=== PATIENT | female | born 1995 | race Caucasian/White ===

== ENCOUNTER 2017-03-03 00:34 | Emergency (ER) | payer OTHER ==
[~2017-03-03] VITALS: Ht 172.7 cm; Wt 71.3 kg
[2017-03-03 00:41] VITALS: TEMP 36.9; Ht 172.7 cm; Wt 71.3 kg
[2017-03-03] MEDS ORDERED: PHENAZOPYRIDINE HCL 200 MG TAB PO STA (00:57)
[2017-03-03] MEDS ORDERED: SULFAMETHOXAZOLE/TRIMETHOPRIM DS 800/160MG TAB PO STA (00:57)
--- NOTE | 2017-03-03 00:57 | EMERGENCY ROOM VISIT NOTE ---
History Report prepared by Thom: Varsha Mae Under the Supervision of: Dr. Magen Pope M.D. First contact with patient: 00:45 Chief Complaint: URINARY SYMPTOMS Stated Complaint: BLOOD IN URINE History of Present Illness The patient is a 22 year old female who presents to the Emergency Room with complaints of worsening urinary symptoms that began two hours prior to arrival. She currently rates her discomfort as a 4/10 in severity. The patient states that she has had a UTI in the past, noting that her symptoms today feel similar just worse. Today she associates dysuria, hematuria, chills, dizziness, and lower pelvic abdominal pain. The patient denies any fever, chest pain, vaginal bleeding, vaginal discharge, flank pain, back pain, or swelling in her bilateral ankles. She denies taking any medications for her symptoms. The patient notes concern for STDs, stating that she had intercourse with her boyfriend yesterday. She denies seeing a astronomy instructor in the past. The patient denies taking any medications daily. Source of History: patient Onset: two hours prior to arrival Position: other (global) Symptom Intensity: 4/10 Quality: other (urinary symptoms) Timing: worsening Associated Symptoms: + abdominal pain (pelvic), + chills, + urinary symptoms (dysuria, hematuria), No back pain, No chest pain, No fevers Note: Associated Symptoms: dizziness Review of Systems See HPI for pertinent positives & negatives. A total of 10 systems reviewed and were otherwise negative. Past Medical & Surgical Medical Problems: (1) No active medical problems Family History No pertinent family history stated. Social History Smoking Status: Never Smoker Marital Status: in relationship Occupation Status: [employer] student Current/Historical Medications Scheduled Sulfa/Trimethoprim (Bactrim Ds 800MG/160MG), 1 TAB PO BID Scheduled PRN Phenazopyridine HCl (Pyridium), 200 MG PO TID PRN for Frequency/Burning w/ Urination Physical Exam Vital Signs Date Time Temp Pulse Resp B/P Pulse Ox O2 Delivery O2 Flow Rate FiO2 03/03/17 01:42 87 18 115/50 96 03/03/17 00:41 36.9 73 20 141/94 96 Room Air Physical Exam GENERAL: Patient is anxious appearing and in no acute distress. HEENT: No acute trauma, normocephalic atraumatic, mucous membranes moist, no nasal congestion, no scleral icterus. NECK: No stridor, no adenopathy, no meningismus, trachea is midline. LUNGS: No dyspnea. Clear to auscultation and equal bilaterally. No wheeze, no rhonchi. HEART: Regular rate and rhythm. No murmurs, rubs, gallops appreciated. ABDOMEN: Soft, nontender, bowel sounds positive, no masses appreciated, no peritonitis. BACK: No midline tenderness, no CVA tenderness EXTREMITIES: Normal motion all extremities, no cyanosis, no edema. NEUROLOGIC: Alert and oriented, no acute motor or sensory deficits, no focal weakness, cranial nerves grossly intact. SKIN: No rash, no jaundice, no diaphoresis. Medical Decision & Procedures Laboratory Results Test 03/03/17 00:50 Urine Color DK YELLOW Urine Appearance TURBID (CLEAR) Urine pH 5.0 (4.5-7.5) Urine Specific [place] 1.022 (1.000-1.030) Urine Protein 2+ (NEG) Urine Glucose (UA) NEG (NEG) Urine Ketones NEG (NEG) Urine Occult Blood 3+ (NEG) Urine Nitrite NEG (NEG) Urine Bilirubin NEG (NEG) Urine Urobilinogen NEG (NEG) Urine Leukocyte Esterase LARGE (NEG) Urine WBC (Auto) >30 /hpf (0-5) Urine RBC (Auto) >30 /hpf (0-4) Urine Hyaline Casts (Auto) 5-10 /lpf (0-5) Urine Epithelial Cells (Auto) >30 /lpf (0-5) Urine Bacteria (Auto) 1+ (NEG) Urine Test NEG (NEG) Laboratory results as reviewed by me. Medications Administered Medications (Trade) Dose Ordered Sig/Luz Route Start Time Stop Time Status Last Admin Dose Admin Trimethoprim/ Sulfamethoxazole (Septra Ds 800/ 160MG Tab) 1 tab NOW STAT PO 03/03/17 00:57 03/03/17 00:58 DC 03/03/17 01:01 1 TAB Phenazopyridine HCl (Pyridium Tab) 200 mg NOW STAT PO 03/03/17 00:57 03/03/17 00:58 DC 03/03/17 01:01 200 MG ED Course 0049: The patient was evaluated in room A4B. A complete history and physical exam was performed. 0057: Ordered Pyridium Tab 200 mg PO, Trimethoprim/Sulfamethoxazole 1 tab PO. 0105: I reevaluated the patient and she is resting comfortably. I discussed the exam findings with her and I discussed the treatment plan. She verbalized complete understanding and agreement. She is ready to go home. Medical Decision Differential: UTI, Urethritis, Pyelonephritis, STI, Herpetic, Vaginitis, Hyperglycemia, Yeast, PID, Cystitis, Hemorrhagic Cystitis, amongst other pathologies entertained. 22 yr old female with UTI symptoms arrives for evaluation. Admits recent sexual encounter that symptoms began after. Clearly infected UA thus I suspect this is UTI rather than STI. 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 Exam and story not consistent with PID. Will start on Bactrim x 5 days given hemorrhagic cystitis along with pyridium prn. Does not have symptoms of pyelonephritis nor sepsis and abdominal exam is benign and non-surgical. Impression Primary Impression: Urinary tract infection Scribe Attestation The scribe's documentation has been prepared under my direction and personally reviewed by me in its entirety. I confirm that the note above accurately reflects all work, treatment, procedures, and medical decision making performed by me. Departure Information Dispostion Home / Self-Care Prescriptions Phenazopyridine HCl (Pyridium) 200 Mg Tab 200 MG PO TID Y for Frequency/Burning w/Urination, #9 TAB Prov: Magen Pope M.D. 03/03/17 Sulfa/Trimethoprim (Bactrim Ds 800MG/160MG) Tab 1 TAB PO BID for 5 Days, #10 TAB Prov: Magen Pope M.D. 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
[2017-03-03] MEDS ORDERED: PHEN-876 PO (01:22)
[2017-03-03] MEDS ORDERED: SULF800T23 PO (01:22)
[2017-03-03 01:35] LABS: URINE APPEARANCE TURBID (CLEAR); URINE BILIRUBIN NEG (NEG); URINE EPITHELIAL CELL AUTO >30 /lpf (0-5); URINE NITRITE NEG (NEG); URINE SPECIFIC GRAVITY 1.022 (1.000-1.030); UROBILINOGEN NEG (NEG); ZZUR CULT IF INDIC CLEAN CATCH YES
[2017-03-03 01:36] LABS: MANUAL MICROSCOPIC REQUIRED? NO; REVIEW REQ? NO; URINE COLOR DK YELLOW
[2017-03-03 01:42] VITALS: BP 115/50; PULSE 87; O2SAT 96
== END 2017-03-03 01:36 | disposition home or self-care (01) ==
LOC: C.EDB 00:36 → C.EDA 01:36
DX: N39.0 Urinary tract infection, site not specified (principal)

== ENCOUNTER 2017-08-28 11:54 | Emergency (ER) | payer OTHER ==
[~2017-08-28] VITALS: Ht 167.6 cm; Wt 71.8 kg
[~2017-08-28 11:54] MED LIST: PHEN-876 PO
[2017-08-28 12:02] VITALS: TEMP 36.9; Ht 167.6 cm; Wt 71.8 kg
--- NOTE | 2017-08-28 12:55 | DIAGNOSTIC IMAGING REPORT ---
R FOOT MIN 3 VIEWS ROUTINE CLINICAL HISTORY: Right foot pain TRAUMA COMPARISON: None. DISCUSSION: No fractures or dislocations are visualized. IMPRESSION: No fractures identified. Electronically signed by: Jose Reyes M.D. 08/28/2017 12:54 PM Dictated Date/Time: 08/28/2017 12:53 PM
--- NOTE | 2017-08-28 13:47 | EMERGENCY ROOM VISIT NOTE ---
ED Visit Note First contact with patient: 12:06 CHIEF COMPLAINT: Foot pain HISTORY OF PRESENT ILLNESS: This 22-year-old female patient presents to the emergency department ambulatory complaining of swelling and pain in the right foot. The patient states that 5 days ago, a cow stepped on her foot. She has had persistent pain and some bruising since then. She has been able to walk, but states it is painful to do so. She rates her discomfort a 5/10. No numbness or weakness. No ankle pain. There are no lacerations of the foot. The patient is able to move all of their toes and their ankle without pain. No previous fracture to this foot. REVIEW OF SYSTEMS: GENERAL: A 6 system review of systems was completed with positives and pertinent negatives in the HPI. ALLERGIES: No known drug allergies MEDICATIONS: No chronic medications PMH: No significant past medical history. SOCIAL HISTORY: The patient lives locally with family. PHYSICAL EXAM: Vital Signs: Reviewed Nurse's notes, vital signs stable. GENERAL : This is a 22-year-old female, in no acute distress, but appears in pain, well- developed, well-nourished. MUSCULOSKELETAL: There is no visual deformity of the right foot. There is ecchymosis and mild soft tissue swelling over the lateral aspect of the foot. There is no significant erythema. There is no warmth. There is tenderness and swelling over the lateral aspect of the right foot. There is no tenderness over the lateral or medial malleolus. No tenderness of the tib/fib. The range of motion of the ankle and toes are full. There is no tenderness over the plantar fascia. The skin is intact and there are no lacerations or puncture wounds. Dorsalis pedis pulse 2+. Capillary refill less than 2 seconds. R FOOT MIN 3 VIEWS ROUTINE CLINICAL HISTORY: Right foot pain TRAUMA COMPARISON: None. DISCUSSION: No fractures or dislocations are visualized. IMPRESSION: No fractures identified. EMERGENCY DEPARTMENT COURSE: I examined the patient. An X-ray of the right foot was reviewed by myself and radiology and reveals no acute fractures. The patient was placed in a postoperative shoe. Conservative measures were discussed with the patient. She verbalized understanding of my assessment and treatment plan and was discharged home in good condition. Medication reconciliation: I attest that I have personally reviewed the patient 's current medication list. Blood pressure screening: Patient was found to have normal blood pressure on screening and does not require follow-up. DIAGNOSIS: Foot contusion Current/Historical Medications No Active Prescriptions or Reported Meds Allergies Coded Allergies: No Known Allergies (Unverified , 08/28/17) Vital Signs Date Time Temp Pulse Resp B/P (MAP) Pulse Ox O2 Delivery O2 Flow Rate FiO2 08/28/17 13:53 96 16 116/69 97 08/28/17 12:02 36.9 96 16 116/69 97 Room Air Departure Information Impression Primary Impression: Contusion of foot Dispostion Home / Self-Care Condition GOOD Prescriptions No Active Prescriptions or Reported Meds Referrals No Doctor, Assigned (PCP) Patient Instructions My [facility] Additional Instructions You have been treated in the Emergency Department for a foot pain. For pain control, you can use the following [id number] medicines (if >12 yo): - Regular strength (325mg/tab) Tylenol (acetaminophen) 2 tabs every 4-6 hours as needed. Do not exceed 12 tablets in a 24 hour period. Avoid taking more than 4 grams (4000 mg) of Tylenol per day. This includes any other sources of acetaminophen you may take on a regular basis. - Regular strength (200 mg/tab) Advil (ibuprofen) 1-2 tabs every 4-6 hours as needed. Do not exceed a dose of 3200 mg per day. If this is a recent injury (<24 hrs), ice can be applied to the area of pain for the first 3 days to help decrease pain and inflammation. Wear the postoperative shoe for the next week, or as needed for pain. Return to the Emergency Department if your current symptoms worsen despite treatment course outlined above, or if you develop any of the following symptoms : intractable pain despite aforementioned treatment course or new onset of numbness or tingling of the foot. Problem Qualifiers Primary Impression: Contusion of foot Encounter type: initial encounter Laterality: right Qualified Codes: S90.31XA - Contusion of right foot, initial encounter
[2017-08-28 13:53] VITALS: BP 116/69; PULSE 96; O2SAT 97
== END 2017-08-28 13:56 | disposition home or self-care (01) ==
LOC: C.EDB 11:57 → C.EDD 13:56
DX: S90.31XA Contusion of right foot, initial encounter (principal); W55.22XA Struck by cow, initial encounter